=== PATIENT | female | born 1995 | race Hispanic/Latino ===

== ENCOUNTER 2022-11-17 17:15 | Emergency (ER) | payer MEDICAID, OTHER ==
[~2022-11-17] VITALS: Ht 157.5 cm; Wt 68.9 kg
[2022-11-17 18:05] LABS: BASOPHILS # (AUTO) 0.02 K/uL (0.00-0.20); BASOPHILS % (AUTO) 0.3 % (0.0-5.0); EOSINOPHILS # (AUTO) 0.02 K/uL (0.00-0.70); EOSINOPHILS % (AUTO) 0.3 % (0.0-8.0); HEMATOCRIT 37.6 % (36-48); IMMATURE GRANULOCYTE ABSOLUTE 0.02 K/uL (0-1); LYMPHOCYTES # (AUTO) 1.1 K/uL (1.0-4.8); LYMPHOCYTES % (AUTO) 15.8 % (21.0-51.0); MEAN CORPUSCULAR HEMOGLOBIN 31.3 pg (27.0-33.0); MEAN CORPUSCULAR HGB CONC 35.4 g/dL (32.0-36.0); MEAN CORPUSCULAR VOLUME 88.5 fL (79-99); MONOCYTES # (AUTO) 0.4 K/uL (0.1-1.0); MONOCYTES % (AUTO) 4.8 % (3.0-13.0); NEUTROPHILS # (AUTO) 5.7 K/uL (1.8-7.7); NEUTROPHILS % (AUTO) 78.5 % (40.0-77.0); PLATELET COUNT (AUTO) 230 K/uL (130-400); RED BLOOD CELL COUNT(AUTO) 4.25 MIL/uL (4.00-5.50); RED CELL DISTRIBUTION WIDTH 11.9 % (11.0-15.5); WHITE BLOOD COUNT (AUTO) 7.2 K/uL (4.8-10.8)
[2022-11-17 18:20] LABS: CREATININE 0.8 mg/dL (0.5-1.5); POTASSIUM 4.1 mmol/L (3.5-5.1)
[2022-11-17 18:25] LABS: ALBUMIN 3.8 g/dL (3.5-5.0); BILIRUBIN,TOTAL 0.3 mg/dL (0.2-1.0); TOTAL PROTEIN, SERUM 7.6 g/dL (6.0-8.3)
[2022-11-17] MEDS ORDERED: LEVETIRACETAM 500 MG/5 ML SD VIAL IV SCH (18:30)
[2022-11-17] MEDS ORDERED: ACETAMINOPHEN 325 MG TAB ONE (18:34)
[2022-11-17] MEDS ORDERED: ACETAMINOPHEN 325 MG TAB PO ONE (19:00)
[2022-11-17] MEDS ORDERED: LEVE-43 PO (19:03)
[2022-11-17] MEDS ORDERED: ONDA4TAB10 PO (19:03)
[2022-11-17 19:16] VITALS: BP 118/70; PULSE 93; RESP 18; O2SAT 98
[2022-11-17] MEDS ORDERED: LORAZEPAM 2 MG/ML 1 ML VIAL IVP ONE (19:45)
== END 2022-11-17 19:17 | disposition home or self-care (01) ==
LOC: EDH 17:15
DX: G40.909 Epilepsy, unspecified, not intractable, without status epilepticus (principal); Z91.199 Patient's noncompliance with other medical treatment and regimen due to unspecified reason; Z98.890 Other specified postprocedural states
CPT/HCPCS: 99284; 96365; 80053; 84703; 83690; 85025; 36415; J1953

== ENCOUNTER 2023-05-02 19:15 | Emergency (ER) | payer OTHER ==
[~2023-05-02] VITALS: Ht 157.5 cm; Wt 73.9 kg
[~2023-05-02 19:15] MED LIST: LEVE-43 PO; ONDA4TAB10 PO
[2023-05-02 19:17] VITALS: BP 141/94; PULSE 102; RESP 16
[2023-05-02] MEDS ORDERED: CLIN-141 PO (19:42)
[2023-05-02] MEDS ORDERED: IBUP-2077 PO (19:42)
[2023-05-02] MEDS ORDERED: HYDROCODONE/ACETAMINOPHEN 5/325 MG TAB PO ONE (20:00)
[2023-05-02] MEDS ORDERED: CLINDAMYCIN 150 MG CAP PO ONE (20:00)
== END 2023-05-02 20:11 | disposition home or self-care (01) ==
LOC: EDH 19:15
DX: S02.5XXA Fracture of tooth (traumatic), initial encounter for closed fracture (principal); K02.9 Dental caries, unspecified; Z79.899 Other long term (current) drug therapy; Z98.890 Other specified postprocedural states; X58.XXXA Exposure to other specified factors, initial encounter; Y93.89 Activity, other specified; Y92.89 Other specified places as the place of occurrence of the external cause; Y99.8 Other external cause status

== ENCOUNTER 2024-01-05 13:43 | Emergency (ER) | payer SELFPAY ==
[~2024-01-05] VITALS: Ht 157.5 cm; Wt 75.3 kg
[~2024-01-05 13:43] MED LIST changes: +CLIN-141 PO; +IBUP-2077 PO; +ONDA-243 PO; -ONDA4TAB10 PO
[2024-01-05] MEDS: LIDOCAINE HCL 2% VISCOUS 15 ML UDCUP PO ONE (14:50)
[2024-01-05] MEDS ORDERED: NAPR-1084 PO (15:10)
[2024-01-05] MEDS ORDERED: CLIN-141 PO (15:10)
[2024-01-05 15:22] VITALS: BP 129/77; PULSE 81; RESP 14; TEMP 98.1; O2SAT 99
[2024-01-05] MEDS: LIDOCAINE HCL 2% VISCOUS 15 ML UDCUP ONE (15:25)
== END 2024-01-05 15:33 | disposition home or self-care (01) ==
LOC: EDH 13:43
DX: S02.5XXA Fracture of tooth (traumatic), initial encounter for closed fracture (principal); G40.909 Epilepsy, unspecified, not intractable, without status epilepticus; Z98.51 Tubal ligation status; X58.XXXA Exposure to other specified factors, initial encounter; Y93.89 Activity, other specified; Y92.89 Other specified places as the place of occurrence of the external cause; Y99.8 Other external cause status

== ENCOUNTER 2024-06-16 17:55 | Emergency (ER) | payer SELFPAY ==
[~2024-06-16] VITALS: Ht 152.4 cm; Wt 72.1 kg
[~2024-06-16 17:55] MED LIST changes: +NAPR-1084 PO
[2024-06-16 17:58] VITALS: BP 123/91; PULSE 90; RESP 18; TEMP 97.8
--- NOTE | 2024-06-16 18:15 | ERN ---
ED Note History of Present Illness Stated Complaint: RT EARACHE Chief Complaint: Earache Time Seen by MD: 18:00 Time Seen by Midlevel: 18:00 Dictation: Ms. Sullivan is a 29 year old female with history of epilepsy who sent to the emergency department this evening for evaluation of ear pain. She reports arrived ear pain/jaw pain that started last night and has gotten progressively worse. She states she also has had intermittent tooth pain on the right lower (# 30). This tooth has had large amount of decay with deep fissure for several weeks. She has been unable to schedule an appointment at dentist because they are asking for clearance (due to her epilepsy) for the use of anesthesia. She also states she has many work commitments making this a low priority. Now is quite painful. Last night symptoms worsened and she felt feverish. Shortness of breath, cough, chest pain, palpitations, edema, abdominal pain, nausea, vomiting, diarrhea, dysuria, headache, or dizziness. Allergies: Coded Allergies: No Known Allergies (Unverified Allergy, Unknown, 11/17/22) Home Meds Active Scripts Tramadol HCl/Acetaminophen (Tramadol-Acetaminophn 37.5-325) 37.5 Mg-325 Mg Tablet, 1 EACH PO q 12 hours as needed, #10 TAB 0 Refills Prov:PATRIZIA QUIROZ NP 06/16/24 Ibuprofen (Ibuprofen) 600 Mg Tablet, 600 MG PO Q6H PRN for PAIN, #15 TAB 0 Refills Prov:PATRIZIA QUIROZ NP 06/16/24 Amoxicillin (Amoxicillin) 500 Mg Capsule, 1 CAP PO TID for 10 Days, #30 CAP 0 Refills Prov:PATRIZIA QUIROZ NP 06/16/24 Naproxen Sodium (Naproxen Cr) 500 Mg Tbmp.24hr, 500 MG PO BID for 7 Days, #14 TAB.SR Prov:CRIS COUCH MD 01/05/24 Clindamycin HCl (Clindamycin HCl) 300 Mg Capsule, 1 CAP PO TID for 10 Days, #30 CAP 0 Refills Prov:CRIS COUCH MD 01/05/24 Ibuprofen (Ibuprofen 800 mg Tab) 800 Mg Tab, 800 MG PO Q8H PRN for fever or pain, #30 TAB 0 Refills Prov:HERMILO LEYVA NP 05/02/23 Clindamycin HCl (Clindamycin HCl) 300 Mg Capsule, 1 CAP PO QID for 10 Days, #40 CAP 0 Refills Prov:HERMILO LEYVA DUST MOP MAKER 05/02/23 Ondansetron (Ondansetron Odt) 4 Mg Tab.rapdis, 4 MG PO TID PRN for NAUSEA, #15 TAB 0 Refills Prov:ALLEN SHEEHAN MD 11/17/22 Levetiracetam (Keppra) 500 Mg Tablet, 1 TAB PO BID for 30 Days, #60 TAB 0 Refills Prov:ALLEN SHEEHAN MD 11/17/22 Past Medical History Past Medical History: Seizure Additional Past Medical Hx: HX OF EPILEPSY Surgical History: None, BTL Surgical History Other: Tubal ligation History: Not Applicable LMP: Jun 12, 2024 RN Note Reviewed/Agreed w/PFSH: Yes Review of System Dictation REVIEW OF SYSTEMS: CONSTITUTIONAL: Patient denies chills, sweats and weight changes. She states she was feeling feverish last night. EYES: Patient denies any visual symptoms. EARS, NOSE, AND THROAT: No difficulties with hearing. No symptoms of rhinitis or sore throat. Reports cracked/decayed tooth right lower times several weeks. Reports right ear pain. CARDIOVASCULAR: Patient denies chest pains, palpitations, orthopnea and paroxysmal nocturnal dyspnea. RESPIRATORY: No dyspnea on exertion, no wheezing or cough. GI: No nausea, vomiting, diarrhea, constipation, abdominal pain, hematochezia or melena. : No urinary hesitancy or dribbling. No nocturia or urinary frequency. No abnormal urethral discharge. MUSCULOSKELETAL: No myalgias or arthralgias. NEUROLOGIC: No chronic headaches, no seizures. Patient denies numbness, tingling or weakness. PSYCHIATRIC: Patient denies problems with mood disturbance. No problems with anxiety. ENDOCRINE: No excessive urination or excessive thirst. DERMATOLOGIC: Patient denies any rashes or skin changes. Initial Vital Sign VS Vital Signs Date Time Temp Pulse Resp B/P (MAP) Pulse Ox O2 Delivery O2 Flow Rate FiO2 06/16/24 17:58 97.9 90 18 123/91 96 Room Air 0 Physical Exam Dictation Vital signs: Reviewed. Afebrile Constitutional: No acute distress. Non-toxic appearing. Uncomfortable Head/Face: Normocephalic, atraumatic. Eyes: Periorbital areas with no swelling, redness, or edema. Lids and lashes are normal. Conjunctival injection is absent. Sclera anicteric. Pupils equal, round, reactive to light. ENT: Pinnas intact and no signs of trauma or erythema. Ear canals clear and no discharge. TMs no erythema. Bilateral TM visualize; no bulging or effusion. No nasal discharge or bleeding noted. Oropharynx with no exudate, redness, swelli ng, masses, exudates, or evidence of obstruction. Uvula midline. Mucous membranes moist. Neck: Trachea midline, no masses palpated, and no cervical lymphadenopathy. No swelling. Supple, full range of motion. Chest/Axilla: No tenderness, no crepitus, no paradoxical movement, no retractions. Cardiovascular: Regular rate, regular rhythm, no murmur, no gallops. Symmetric pulses. No peripheral edema. BP 123/91 Respiratory: Respirations even and unlabored. Lung sounds clear; no wheezes, rales or rhonchi. Room air SpO2 99% Gastrointestinal: Inspection is normal. No distention is appreciated. Bowel sounds are normal. No mass or organomegaly . There is no tenderness. No rebound. No rigidity. No voluntary or involuntary guarding. No Hayden's sign. Neurological: Normal speech, gross motor function intact, gross sensory function intact. No focal weakness/Paresthesia. Musculoskeletal/Extremities: All extremities have full range of motion, no pain or tenderness on palpation. Symmetric pulses. Integumentary: Intact. Skin is normal color, warm and dry. Cap refill less than 3 seconds. ED Course ED Course Orders Procedure Category Date Status Time Amoxicillin 500mg Cap PHA 06/16/24 Logged (Amoxicillin 500mg 18:30 Hydrocodone/Apap PHA 06/16/24 Logged 5/325 (Weston 5/325mg) 18:30 Ketorolac PHA 06/16/24 Logged Tromethamine 30mg/Ml 18:30 Current Medications Medications (Trade) Dose Ordered Sig/Clinton Route PRN Reason Start Time Stop Time Status Last Admin Dose Admin Acetaminophen/ Hydrocodone Bitart (NORco 5/325MG) 1 tab ONCE ONCE PO 06/16/24 18:30 06/16/24 18:31 UNV Amoxicillin (Amoxicillin 500mg Cap) 500 mg ONCE ONCE PO 06/16/24 18:30 06/16/24 18:31 UNV Ketorolac Tromethamine (toRADol) 30 mg ONCE ONCE IM 06/16/24 18:30 06/16/24 18:31 UNV Vital Signs Date Time Temp Pulse Resp B/P (MAP) Pulse Ox O2 Delivery O2 Flow Rate FiO2 06/16/24 17:58 97.9 90 18 123/91 96 Room Air 0 Uneventful ED course. Vital signs stable; afebrile. Patient has a broken tooth with exposed nerve. Painful. He received doses Toradol, Weston, and amoxicillin. Findings were discussed with patient and she is instructed to follow up as soon as possible with her dentist. Medical Decision Making MDM MDM: Differential diagnosis: Dental abscess, dental chester, otitis media, otitis externa Rationale: Tests considered and ordered secondary to shared decision making include: Examination Previous outside records reviewed: Old ER visits. Risk of complication and/or morbidity or mortality of patient management: None Medications-Per medication reconciliation Need for hospitalization: Patient does not meet criteria for hospitalization. Need for emergency major/minor surgery: No There are no social concerns with this patient. Prescription drug management: Tramadol, amoxicillin, ibuprofen Prescriptions will include symptomatic care Patient's prior external medical records from other ER visits were reviewed by me as indicated. Prior testing and results from previous visits were reviewed. Prior tests were taken into account with medical decision making and resource utilization, independent historian/historians were used to obtain complete medical history. I independently interpreted the test that were performed, results were reviewed by me and considered findings on radiology if ordered. Medical management and examination interpretation discussions were had by me with other qualified healthcare professionals as indicated for the patient's care. DX & DISP Disposition: Discharge Departure Impression: Primary Impression: Dental caries extending into pulp Additional Impression: Tooth fracture Condition: Stable Scripts Tramadol HCl/Acetaminophen (Tramadol-Acetaminophn 37.5-325) 37.5 Mg-325 Mg Tablet 1 EACH PO q 12 hours as needed, #10 TAB 0 Refills Prov: PATRIZIA QUIROZ D[employer]ER 06/16/24 Ibuprofen (Ibuprofen) 600 Mg Tablet 600 MG PO Q6H PRN for PAIN, #15 TAB 0 Refills Prov: PATRIZIA QUIROZ DUST [employer]ER 06/16/24 Amoxicillin (Amoxicillin) 500 Mg Capsule 1 CAP PO TID for 10 Days, #30 CAP 0 Refills Prov: PATRIZIA QUIROZ NP 06/16/24 Additional Instructions: Follow up as soon as possible with your dentist or walk in dentist. Cold compress to cheek for 15-20 minutes every hour to reduce swelling . With warm saltwater (1/2 tsp of salt in 8 oz of water) 3-4 times daily to reduce bacteria. Avoid chewing on the affected side and stick to soft foods. Keep area clean; breast gently around it and avoid alcohol based mouth washes that can irritate exposed nerves. Start antibiotic amoxicillin 3 times daily for 10 days. May take ibuprofen every 6 hours as needed for pain. For worse pain take tramadol/acetaminophen every12 hours as needed. Return to the emergency department for any worsening of symptoms or concerns. Referrals: SELF,REFERRAL (PCP) PATRIZIA QUIROZ NP Jun 16, 2024 18:15 JENNIFER PELAEZ DO Jun 16, 2024 18:37
[2024-06-16] MEDS ORDERED: IBUP-2070 PO (18:32)
[2024-06-16] MEDS ORDERED: AMOX500C2 PO (18:32)
[2024-06-16] MEDS ORDERED: TRAM-543 PO (18:32)
[2024-06-16] MEDS: HYDROcodone/APAP 5/325 1 TAB TABLET PO ONE (19:09)
[2024-06-16] MEDS: AMOXICILLIN 500 MG CAPSULE PO ONE (19:09)
[2024-06-16] MEDS: ketOROlac 30MG VIAL (30MG/ML) IM ONE (19:10)
== END 2024-06-16 19:33 | disposition home or self-care (01) ==
LOC: EDH 17:55
DX: S02.5XXA Fracture of tooth (traumatic), initial encounter for closed fracture (principal); K02.9 Dental caries, unspecified; G40.909 Epilepsy, unspecified, not intractable, without status epilepticus; Z79.899 Other long term (current) drug therapy; Z98.51 Tubal ligation status; X58.XXXA Exposure to other specified factors, initial encounter; Y93.89 Activity, other specified; Y92.89 Other specified places as the place of occurrence of the external cause; Y99.8 Other external cause status
CPT/HCPCS: 99283; 96372; J1885

== ENCOUNTER 2024-08-13 23:46 | Emergency (ER) | payer SELFPAY ==
[~2024-08-13] VITALS: Ht 157.5 cm; Wt 71.2 kg
[~2024-08-13 23:46] MED LIST changes: +AMOX500C2 PO; +IBUP-2070 PO; +TRAM-543 PO
--- NOTE | 2024-08-14 00:44 | ERN ---
ED Note History of Present Illness Stated Complaint: FISH HOOK LEFT ELBOW Chief Complaint: Other Problems Time Seen by MD: 00:24 Time Seen by Midlevel: 00:30 Dictation: 29-year-old female with no past medical history coming in with a fish hook stuck in her left elbow. Patient states her last tetanus was five years ago. Allergies: Coded Allergies: No Known Allergies (Unverified Allergy, Unknown, 11/17/22) Home Meds Active Scripts Tramadol HCl/Acetaminophen (Tramadol-Acetaminophn 37.5-325) 37.5 Mg-325 Mg Tablet, 1 EACH PO q 12 hours as needed, #10 TAB 0 Refills Prov:PATRIZIA QUIROZ NP 06/16/24 Ibuprofen (Ibuprofen) 600 Mg Tablet, 600 MG PO Q6H PRN for PAIN, #15 TAB 0 Refills Prov:PATRIZIA QUIROZ NP 06/16/24 Amoxicillin (Amoxicillin) 500 Mg Capsule, 1 CAP PO TID for 10 Days, #30 CAP 0 R efills Prov:PATRIZIA QUIROZ NP 06/16/24 Naproxen Sodium (Naproxen Cr) 500 Mg Tbmp.24hr, 500 MG PO BID for 7 Days, #14 TAB.SR Prov:CRIS COUCH MD 01/05/24 Clindamycin HCl (Clindamycin HCl) 300 Mg Capsule, 1 CAP PO TID for 10 Days, #30 CAP 0 Refills Prov:CRIS COUCH MD 01/05/24 Ibuprofen (Ibuprofen 800 mg Tab) 800 Mg Tab, 800 MG PO Q8H PRN for fever or pain, #30 TAB 0 Refills Prov:HERMILO LEYVA NP 05/02/23 Clindamycin HCl (Clindamycin HCl) 300 Mg Capsule, 1 CAP PO QID for 10 Days, #40 CAP 0 Refills Prov:HERMILO LEYVA NP 05/02/23 Ondansetron (Ondansetron Odt) 4 Mg Tab.rapdis, 4 MG PO TID PRN for NAUSEA, #15 TAB 0 Refills Prov:ALLEN SHEEHAN MD 11/17/22 Levetiracetam (Keppra) 500 Mg Tablet, 1 TAB PO BID for 30 Days, #60 TAB 0 Refills Prov:ALLEN SHEEHAN MD 11/17/22 Past Medical History Past Medical History: Seizure Additional Past Medical Hx: HX OF EPILEPSY Surgical History: None, BTL Surgical History Other: Tubal ligation History: Not Applicable Review of System Dictation Constitutional: Negative for fever,chills, and weight loss Eyes: Negative for injury, pain,redness, and discharge ENT: Negative for injury,pain or swelling Cardiovascular: Negative for chest pain, palpitations, and edema Respiratory: Negative for shortness of breath, cough, and wheezing, Abdomen/GI: Negative for abdominal pain, nausea, vomiting, diarrhea, and consti pation Back: Negative for injury and pain : Negative for injury, bleeding and discharge MS/Extremity: Negative for injury and deformity Skin: Snelling stuck in the left elbow Neuro: Negative for headache, weakness, numbness, tingling, and seizure Psych: Negative for suicide ideation, homicidal ideation, and hallucinations Review of Systems: was completed Initial Vital Sign VS Vital Signs Date Time Temp Pulse Resp B/P (MAP) Pulse Ox O2 Delivery O2 Flow Rate FiO2 08/13/24 23:48 97.0 99 20 159/109 100 Room Air 08/14/24 00:08 0 21 Physical Exam Dictation General: awake, alert, NAD Head/Face: Normocephalic, atraumatic Eyes: PERRL, EOMI, vision at baseline ENT: oral cavity clear, TMs clear, no signs of infection Neck: Trachea midline, supple, no nuchal rigidity Cardiovascular: RRR, normal S1/S2, No MRGs, no JVD Respiratory: CTAB, no respiratory distress, No rales or wheezes Abdomen: Soft, non-tender, non-distended, normal bowel sounds, no guarding or rebound. Skin: Warm, dry, normal turgor, no rash, patient is stuck in the left elbow, superficial MS/Extremity: Pulses equal, no cyanosis, neurovascular intact, FROM Neuro: COAx4, GCS 15, strength 5/5, CN 2-12 intact, normal cerebellar exam, normal gait, Psych: Normal behavior, mood, and affect normal ED Course ED Course Orders Procedure Category Date Status Time Lidocaine Hcl 1% 20ml PHA 08/14/24 Complete Vial (Lidocaine Hc 00:23 Tetanus,Diphtheria PHA 08/14/24 Complete Tox [Adult] (Diphther 00:30 Current Medications Medications (Trade) Dose Ordered Sig/Clinton Route PRN Reason Start Time Stop Time Status Last Admin Dose Admin Lidocaine HCl (Lidocaine HCl 1% 20ml Vial) 20 ml STK-MED ONCE .ROUTE 08/14/24 00:23 08/14/24 00:23 DC Tetanus/ Diphtheria Toxoids Adsorbed (DiphthERIA-teTANUS TOXOID [ADULT]/ DECAVAC) 0.5 ml ONCE ONCE IM 08/14/24 00:30 08/14/24 00:32 DC Vital Signs Date Time Temp Pulse Resp B/P (MAP) Pulse Ox O2 Delivery O2 Flow Rate FiO2 08/14/24 00:08 98.8 94 20 118/87 99 Room Air* 0 21 08/13/24 23:48 97.0 99 20 159/109 100 Room Air Medical Decision Making MDM MDM: 29-year-old female with no past medical history coming in with a fish hook stuck in her left elbow. Patient states her last tetanus was five years ago. Numb the area with 7 cc of lidocaine, cut the fish hook that is sticking out of the elbow, created a 0.5 cm incision at the end where the tip of the fishhook would be, protruding the fishhook out that incision. Using Adson forceps pulled out the tip of the fishhook that was sticking out of the incision that I created successfully removing the entire foreign body. Dermabond applied at the incision that I created. Patient was updated with a tetanus. Educated to follow up with PCP in 1-2 his to return to the hospital if symptoms worsen. Differential diagnosis: Foreign body and elbow, Rationale: Tests considered and ordered secondary to shared decision making include: Previous outside records reviewed: Old ER visits. Risk of complication and/or morbidity or mortality of patient management: None Medications-Per medication reconciliation Need for hospitalization: Patient does not meet criteria for hospitalization. Need for emergency major/minor surgery: No There are no social concerns with this patient. Prescription drug management Prescriptions will include symptomatic care Patient's prior external medical records from other ER visits were reviewed by me as indicated. Prior testing and results from previous visits were reviewed. Prior tests were taken into account with medical decision making and resource utilization, independent historian/historians were used to obtain complete medical history. I independently interpreted the test that were performed, results were reviewed by me and considered findings on radiology if ordered. Medical management and examination interpretation discussions were had by me with other qualified healthcare professionals as indicated for the patient's care. DX & DISP Disposition: Discharge Departure Impression: Primary Impression: Fish hook injury of left upper arm Condition: Stable Additional Instructions: The Dermabond will fall on its own. Return to the hospital if you have any signs of infection. Referrals: SELF,REFERRAL (PCP) Time of Disposition: 00:44 I have reviewed the case, and I agree with, Diagnosis and Plan ROSARIO ROLAND NP August 14, 2024 00:44
[2024-08-14] MEDS: teTANUS/diphthERIA TOXOID [ADULT] 0.5 ML VIAL IM ONE (00:45)
[2024-08-14] MEDS: LIDOCAINE HCL 1% 20 ML VIAL ONE (00:45)
[2024-08-14 00:46] VITALS: BP 121/86; PULSE 89; RESP 18; TEMP 98.4; O2SAT 99
== END 2024-08-14 00:51 | disposition home or self-care (01) ==
LOC: EDH 23:46
DX: S51.032A Puncture wound without foreign body of left elbow, initial encounter (principal); Z79.899 Other long term (current) drug therapy; Z98.51 Tubal ligation status; W45.8XXA Other foreign body or object entering through skin, initial encounter; Y93.89 Activity, other specified; Y92.89 Other specified places as the place of occurrence of the external cause; Y99.8 Other external cause status
CPT/HCPCS: 10120; 90471; 90714; 99285

== ENCOUNTER → 2024-10-23 | Emergency (ER) | payer BC ==
[~2024-10-23] VITALS: Ht 157.5 cm; Wt 72.6 kg
[2024-10-23 09:45] VITALS: BP 128/83; PULSE 86; RESP 18; TEMP 98.2
[2024-10-23] MEDS: 0.9%NACL 1000ML 1,002 ML IV ONE (10:28)
--- NOTE | 2024-10-23 10:28 | NUR ---
PT REFUSING LAB BLOOD DRAW, PT ALSO REFUSING EKG AT BEDSIDE INFORMED DR. COUCH. DOCTOR AT BEDSIDE OF SITUATION, ASSESSED PT .
--- NOTE | 2024-10-23 10:29 | NUR ---
PT AGREED TO SIGN REFUSAL FORM FOR LABS AND EKG.
--- NOTE | 2024-10-23 10:44 | ERN ---
General Chief Complaint: Syncope Stated Complaint: SYNCOPE Time Seen by MD: 10:00 Source: patient History of Present Illness Initial Comments Ms. Sullivan is a 29-year-old female who presented to the ED via private vehicle following an episode of fainting. The patient states that she was having an verbal altercation with an acquaintance when she started suddenly started feeling sweaty and started seeing black spots and eventually lost consciousness. She states that she felt like she was having a seizure. EMS arrived on the scene and offered her to take her to the hospital but she refused. She eventually got in the car and came to the ED. Patient states that she has a history of seizures for which she used to take Keppra which she no longer takes. She also states that she has a history of anxiety for which she takes Ativan and Seroquel. In the ED her vitals are stable. She claims that she has a headache. Allergies: Coded Allergies: No Known Allergies (Unverified Allergy, Unknown, 11/17/22) Home Meds Active Scripts Tramadol HCl/Acetaminophen (Tramadol-Acetaminophn 37.5-325) 37.5 Mg-325 Mg Tablet, 1 EACH PO q 12 hours as needed, #10 TAB 0 Refills Prov:PATRIZIA QUIROZ NP 06/16/24 Ibuprofen (Ibuprofen) 600 Mg Tablet, 600 MG PO Q6H PRN for PAIN, #15 TAB 0 Refills Prov:PATRIZIA QUIROZ NP 06/16/24 Amoxicillin (Amoxicillin) 500 Mg Capsule, 1 CAP PO TID for 10 Days, #30 CAP 0 Refills Prov:PATRIZIA QUIROZ NP 06/16/24 Naproxen Sodium (Naproxen Cr) 500 Mg Tbmp.24hr, 500 MG PO BID for 7 Days, #14 TAB.SR Prov:CRIS COUCH MD 01/05/24 Clindamycin HCl (Clindamycin HCl) 300 Mg Capsule, 1 CAP PO TID for 10 Days, #30 CAP 0 Refills Prov:CRIS COUCH MD 01/05/24 Ibuprofen (Ibuprofen 800 mg Tab) 800 Mg Tab, 800 MG PO Q8H PRN for fever or pain, #30 TAB 0 Refills Prov:HERMILO LEYVA NP 05/02/23 Clindamycin HCl (Clindamycin HCl) 300 Mg Capsule, 1 CAP PO QID for 10 Days, #40 CAP 0 Refills Prov:HERMILO LEYVA NP 05/02/23 Ondansetron (Ondansetron Odt) 4 Mg Tab.rapdis, 4 MG PO TID PRN for NAUSEA, #15 TAB 0 Refills Prov:ALLEN SHEEHAN MD 11/17/22 Levetiracetam (Keppra) 500 Mg Tablet, 1 TAB PO BID for 30 Days, #60 TAB 0 Refills Prov:ALLEN SHEEHAN MD 11/17/22 Past Medical History Past Medical History: Seizure Medical History Other: HX OF EPILEPSY Past Surgical History: None, BTL Surgical History Other: Tubal ligation Female( History) History: Not Applicable ROS Dictation ROS Dictation CONSTITUTIONAL: No chills, no fever, no weakness, no diaphoresis, no malaise. HEAD/FACE: No signs of trauma. EENT: No eye pain, no blurred vision, no tearing, no double vision, no ear pain, no ear discharge, no nose pain, no nasal congestion, no throat pain, no throat swelling, no mouth pain. RESPIRATORY: No cough, no orthopnea, no SOB, no stridor, no wheezing. CARDIOVASCULAR: No chest pain, no edema, no palpitations, no syncope. GASTROINTESTINAL/ABDOMINAL: No abdominal pain, no constipation, no diarrhea, no nausea, no vomiting. GENITOURINARY: No abnormal discharge, no dysuria, no frequent urination, no hematuria. No complaints of pain in the genitals. MUSCULOSKELETAL: No back pain, no gout, no joint pain, no joint swelling, no muscle pain, no muscle stiffness, no neck pain. INTEGUMENTARY: No change in color, no change in hair/nails, no dryness, no lesion, no lumps, no rash. NEUROLOGICAL/PSYCH: anxiety, not depressed, no emotional problem, headache, no numbness, no pre-existing deficit, no history of seizures, no tremors, no weakness. HEMATOLOGIC/LYMPHATIC: Not anemic, no history of blood clots, no apparent bleeding, no bruising, glands not swollen. All Systems Negative, Except as Noted. Physical Exam Physical Exam Dictation Physical Exam Dictation VITAL SIGNS: Reviewed. GENERAL APPEARANCE: Alert, oriented x3 HEAD AND FACE: Non-traumatic. EYES: PERRL, pink conjunctivas, eyelid no trauma, anterior chamber clear. EARS: Pinnas intact and no signs of trauma or erythema. Ear canals clear and no discharge. TMs no erythema. NOSE: No discharge, no bleeding. OROPHARYNX: Mouth normal, teeth no caries, tongue pink. Pharynx clear, no erythema. Tonsils no exudates, no abscesses noted. Mucous membrane moist. NECK: Supple, non-tender, no thyromegaly, no masses, no JVD, no bruits. BREAST: Deferred. CHEST: No tenderness, no crepitus, no paradoxical movement, no retractions. LUNGS: Clear, well-ventilated, symmetric, no rales, no wheezing, no rhonchi, no stridor, good breath sounds bilaterally. HEART: Regular rate, regular rhythm, no murmur, no gallops. VASCULAR: No peripheral edema. ABDOMEN: Soft, positive bowel sounds, nondistended, no guarding, nontender, no rebound, no masses no hepatomegaly, no splenomegaly, no Hayden's sign, no hernias. RECTAL: Deferred. GENITAL: Deferred. NEUROLOGICAL: Normal speech, gross motor function intact, gross sensory function intact. MUSCULOSKELETAL: Neck nontender, full range of motion, back nontender, full range of motion. EXTREMITIES: Nontender, full range of motion. SKIN: Color pink, dry, no turgor, no rash, no lacerations, no abrasions, no c ontusions. LYMPHATICS: Deferred. MDM Chief complaint: Patient presented to the ED following an episode of loss of consciousness. Past medical history: Patient has a past medical history of seizure disorder, anxiety, and bipolar disorder Vitals: In the ED her temperature is 98.2 F, pulse rate is 86, respiratory rate is 18, pulse oximetry is 99 on room air, blood pressure is 128/83 Physical examination: Physical examination is unremarkable. Review of systems: Review of systems is unremarkable except for a mild headache Laboratory and imaging results: Patient refused any interventions including blood draw for laboratory analysis. Differential: Anxiety, panic attack, seizures, and cardiogenic syncope. Assessment and plan: Detailed physical examination was performed on the patient's head which revealed no acute abnormalities. Due to patient's refusal for drawing blood in order to perform laboratory tests a detailed analysis could not be performed. Based on the physical examination and history we conclude that the patient does not require admission at this point of time. Patient has been diagnosed with syncope due to anxiety/panic attack. Patient eloped from the ED by herself. ED Course Orders Procedure Category Date Status Time 0.9%Nacl 1000ml (Ns PHA 10/23/24 Complete 1000ml) 10:00 Current Medications Medications (Trade) Dose Ordered Sig/Clinton Route PRN Reason Start Time Stop Time Status Last Admin Dose Admin Sodium Chloride 1,002 ml @ 334 mls/hr ONCE ONCE IV 10/23/24 10:00 10/23/24 10:35 DC Vital Signs Date Time Temp Pulse Resp B/P (MAP) Pulse Ox O2 Delivery O2 Flow Rate FiO2 10/23/24 09:45 98.2 86 18 128/83 99 Room Air 0 DX & DISP Disposition: AMA Departure Impression: Primary Impression: Anxiety disorder with panic attacks Condition: Against Medical Advice Additional Instructions: Was notified by nursing staff the patient eloped without notifying anybody. Referrals: SELF,REFERRAL (PCP) LATANYA HARO MD Oct 23, 2024 10:44 CRIS COUCH MD Oct 23, 2024 11:11
== END ==
LOC: EDH 09:44
DX: F41.0 Panic disorder [episodic paroxysmal anxiety] (principal); G40.909 Epilepsy, unspecified, not intractable, without status epilepticus; Z79.899 Other long term (current) drug therapy; Z98.51 Tubal ligation status
CPT/HCPCS: 99282